=== PATIENT | male | born 1995 | race Caucasian/White ===

== ENCOUNTER 2022-08-10 14:24 | Emergency (ER) | payer BC, SELFPAY ==
[2022-08-10] VITALS (12 sets, daily range): BP systolic 114–161; BP diastolic 67–104; PULSE 84–98; RESP 16–18; TEMP 36.8; O2SAT 94–100
--- NOTE | ~2022-08-10 | US_ITS ---
EXAMINATION: US scrotum doppler DATE: 08/10/2022 15:45 INDICATION: testicular pain . TECHNIQUE: Grayscale and Doppler ultrasound images of the testes were obtained. COMPARISON: None. FINDINGS: The right testis measures 3.8 x 5.3 x 2.2 cm. The left testis measures 3.5 x 5.0 x 2.5 cm. No testicular mass. There is slightly increased generalized flow in the right testicle. The right epi didymis is normal with slightly increased vascular flow. The left epididymis is normal with normal va scular flow. Incidental note of a 5 mm left epididymal cyst. There is no varicocele or hydrocele. IMPRESSION: Slight right epididymal and testicular hyperemia, may reflect mild inflammation as can be seen with e pididymoorchitis the appropriate clinical context. Reviewed, dictated and finalized at location K. IMPRESSION: Slight right epididymal and testicular hyperemia, may reflect mild inflammation as can be seen with epididymoorchitis the appropriate clinical context.
--- NOTE | ~2022-08-10 | CT_ITS ---
EXAMINATION: CT abdomen pelvis w con DATE: 08/10/2022 16:33 INDICATION: Abdominal pain TECHNIQUE: Computed tomography (CT) of the abdomen and pelvis was performed with 100 mL Omnipaque-350 intravenous contrast. Automated exposure control and iterative reconstruction technique were employe d. The dose-length product was 477.91 mGy-cm. COMPARISON: None FINDINGS: Lung bases are clear. Heart size is normal. No pericardial or pleural effusion. Liver, gallbladder, s pleen, pancreas, bilateral adrenal glands and left kidney are normal. 2-3 mm obstructing stone at the right ureterovesicular junction with mild right hydroureteronephrosis and delayed right nephrogram. On the left, urinary excreted contrast opacifies entire left ureter without evident filling defects o r urothelial irregularities and with a left ureteral jet visualized in the bladder. Bowels including the appendix are normal. Tiny fat-containing umbilical hernia. No free intraperitoneal gas or fluid. No pathologically enlarged abdominal or pelvic lymphadenopathy. Mild lumbar levocurvature. IMPRESSION: 1. Obstructing 2-3 mm stone at the right ureterovesicular junction with mild right hydroureteronephro sis and delayed right nephrogram. Reviewed, dictated and finalized at location A. IMPRESSION: 1. Obstructing 2-3 mm stone at the right ureterovesicular junction with mild ri ght hydroureteronephrosis and delayed right nephrogram.
--- NOTE | 2022-08-10 14:55 | ED.ABDPAIN ---
HPI - Abdominal Pain General Chief Complaint: Abdominal Pain Stated Complaint: low abd pain Time Seen by Provider: 08/10/22 14:42 History of Present Illness HPI narrative: 27-year-old male reports for evaluation of sudden onset testicular pain, right lower abdominal pain and right flank pain for 1 hour. Patient reports associated nausea, vomiting and urinary urgency. States it feels like I have been kicked in the balls. He denies history of abdominal surgeries, dysuria, hematuria, fever, body aches or chills, penile discharge, hematemesis. Related Data Allergies Allergy/AdvReac Type Severity Reaction Status Date / Time No Known Allergies Allergy Unverified 03/06/12 18:22 Review of Systems Review of Systems: CONSTITUTIONAL: Denies fever, chills EYES: Denies visual changes, redness, or discharge. ENT: Denies rhinorrhea, congestion, sore throat, or otalgia. CARDIOVASCULAR: Denies chest pain, palpitations, or edema. RESPIRATORY: Denies cough or dyspnea. GASTROINTESTINAL: See HPI GENITOURINARY: See HPI SKIN: Denies rash or itching. MUSCULOSKELETAL: See HPI NEUROLOGIC: Denies headache, numbness, dizziness, or weakness. PSYCHIATRIC: Denies anxiety or depression. Exam Narrative: GENERAL: Patient appears uncomfortable. He is diaphoretic and wincing in pain. HEAD: Normocephalic EYES: PERRLA ENT: Nares clear. Mucous membranes moist. Oropharynx without tonsillar hypertrophy exudate or other lesions. NECK: Supple. CHEST: No respiratory distress. Clear to auscultation, no adventitious breath sounds. HEART: Regular rate and rhythm. No murmur heard. Normal peripheral pulses. ABDOMEN: Soft, nontender, normal active bowel sounds. No CVA tenderness. : No pain to palpation of testicles or epididymis. No edema. No scrotal or penile rashes or lesions. No hernia appreciated. EXTREMITIES: Normal range of motion. No edema. SKIN: Warm, dry, no rash. NEURO: No focal deficits. Alert and oriented x3. PSYCH: Normal mood and affect. Course Vital Signs Vital signs: Vital Signs Temperature 98.3 F 08/10/22 14:43 Pulse Rate 98 08/10/22 14:43 Respiratory Rate 18 08/10/22 14:43 Pulse Oximetry 100 08/10/22 14:43 Oxygen Delivery Room Air 08/10/22 14:43 Temperature 98.3 F 08/10/22 14:43 Pulse Rate 84 08/10/22 18:51 Respiratory Rate 16 08/10/22 18:51 Blood Pressure 114/67 08/10/22 18:51 Pulse Oximetry 98 08/10/22 18:51 Oxygen Delivery Room Air 08/10/22 14:43 MDM - Abdominal Pain MDM Narrative Medical decision making narrative: 27-year-old male reports for evaluation of sudden onset right flank pain, right lower abdominal pain and testicular pain. On exam, patient is diaphoretic and wincing in pain. Chemistries unremarkable. CBC significant for leukocytosis of 16.5. Lactic acid elevated at 4.2. Lipase not elevated. Ultrasound of the scrotum obtained without evidence of torsion. It does show slight right epididymal and testicular hyperemia which may reflect mild inflammation as can be seen with epididymo orchitis. CT abd pelvis shows a 2 to 3 mm stone at the right UVJ with mild right hydroureteronephrosis and delayed right nephrogram. Urinalysis with 1+ ketones. Labs and imaging discussed with the patient. The patient denies concern for STDs and penile discharge. He denies testicular pain prior to the sudden onset abdominal pain that developed today, therefore epididymoorchitis less likely. I believe the testicular pain is secondary to the kidney stone. Advised him to follow-up with his PCP if the testicular pain continues despite passing the stone. Patient's leukocytosis and increased lactate may be secondary to pain. He received 2 L of fluids and pain medications with a repeat lactic improving to 2.0. Upon reevaluation, the patient reports complete resolution of pain and states he feels much better. Plan to discharge patient home with Flomax, pain control, Zofran and urinary strainer w
[2022-08-10 15:33] LABS: Lactic Acid Reflex 4.2 mmol/L (0.7-2.0)
[2022-08-10 15:53] LABS: Basophils Absolute Auto 0.1 K/mm3 (0.0-0.1); Basophils Percent Auto 0.4 % (0.2-1.2); Eosinophils Percent Auto 0.2 % (0-4.4); Hematocrit 46.8 % (42.0-52.0); Hemoglobin 16.3 g/dL (14.0-18.0); Immature Granulocyte Percent A 0.6 % (0-0.5); Lymphocytes Absolute Auto 2.26 K/mm3 (0.9-3.2); Lymphocytes Percent Auto 13.7 % (18.3-44.2); Mean Corpuscular HGB Conc 34.8 g/dl (32-36); Mean Corpuscular Hemoglobin 29.4 pg (26-34); Mean Corpuscular Volume 84.3 fl (80-100); Mean Platelet Volume 9.4 fl (7.4-10.4); Monocytes Absolute Auto 0.8 K/mm3 (0.1-0.6); Monocytes Percent Auto 4.6 % (2.6-8.5); Neutrophils Absolute Auto 13.3 K/mm3 (1.3-6.7); Neutrophils Percent Auto 80.5 % (45.5-73.1); Platelet Count Result 384 k/mm3 (150-375); Red Blood Count 5.55 M/mm3 (4.6-6.20); Red Cell Distribution Width 12.7 % (11.5-14.5); White Blood Count 16.5 K/mm3 (4.5-10.0)
[2022-08-10] MEDS: ONDANSETRON INJ 4 MG/2 ML VIAL (15:56)
[2022-08-10] MEDS: HYDROmorphone HCL INJ (*CRX) 1 MG/ML SYR 0.5 MG IV PUSH (15:57)
[2022-08-10] MEDS: SODIUM CHLORIDE 0.9% IV 1,000 ML 999 ML IV CONT ×2 (15:59→18:29)
[2022-08-10 16:03] LABS: Alanine Aminotransferase 65 U/L (6-50); Albumin Level 4.9 g/dL (3.5-5.1); Alkaline Phosphatase 78 U/L (38-126); Anion Gap 15 mmol/L (8-16); Aspartate Amino Transferase 42 U/L (17-59); Bilirubin,Total 1.2 mg/dL (0.2-1.3); Blood Urea Nitrogen 10 mg/dL (9-20); Calcium 9.3 mg/dL (8.4-10.2); Carbon Dioxide 23 mmol/L (22-30); Chloride 103 mmol/L (98-107); Estimated Glomerular Filt Rate > 60; Glucose 127 mg/dL (65-110); Lipase 151 U/L (23-300); Potassium 3.6 mmol/L (3.4-5.0); Sodium 141 mmol/L (137-145)
[2022-08-10 16:13] LABS: Appearance Urine Clear (Clear); Bilirubin Urine Negative (Negative); Blood Urine Negative (Negative); Color Urine Yellow (Yellow); Glucose Urine UA Negative (Negative); Ketones Urine 1+ mg/dL (Negative); Leukocyte Esterase Ur Negative LEU/UL (Negative); Nitrate Urine Negative (Negative); Protein Urine Negative (Negative); Specific Grav Ur 1.017 (1.001-1.035); Urobilinogen Urine 0.2 mg/dL (<2.0); pH Urine 7.5 (5.0-9.0)
[2022-08-10 16:29] LABS: Add Urine Microscopic? NO
[2022-08-10 18:13] LABS: Reflex Lactic Acid Yes or No Add Lactic
== END 2022-08-10 20:27 | disposition home or self-care (01) ==
PROVIDERS: Emergency Provider Physician Assistant; PCP Emergency Medicine
DX: N13.2 Hydronephrosis with renal and ureteral calculous obstruction (principal)
CPT/HCPCS: 36415; 74177; 76870; 80053; 81003; 83605; 83690; 85025; 93976; 96374; 96375; 99284; J1170; J2405; J7030; Q9967

== ENCOUNTER 2023-07-20 08:47 | Emergency (ER) | payer BC, OTHER, SELFPAY ==
[2023-07-20 09:11] VITALS: BP 119/90; PULSE 83; RESP 16; TEMP 36.7; O2SAT 98
--- NOTE | 2023-07-20 09:12 | ED.URI ---
HPI - URI/Sore Throat General Chief Complaint: Upper Respiratory Infection Stated Complaint: Sore Throat Time Seen by Provider: 07/20/23 09:12 Source: patient Mode of arrival: ambulatory Limitations: no limitations History of Present Illness HPI Narrative: 28 yo M presents with c/o nasal congestion, sinus pressure, sore throat, headaches, fatigue for the past week. States sinuses acting up . intermittent dizziness. Recently got home from trip to [place]. All systems reviewed and negative except as noted above. Related Data Allergies Allergy/AdvReac Type Severity Reaction Status Date / Time No Known Allergies Allergy Verified 07/20/23 09:08 Review of Systems Review of Systems: CONSTITUTIONAL: Denies fever, chills, or sweats. reports fatigue. EYES: Denies visual changes, redness, or discharge. ENT: Reports rhinorrhea, congestion, sinus pressure, sore throat, otalgia. CARDIOVASCULAR: Denies chest pain, palpitations, or edema. RESPIRATORY: Denies cough or dyspnea. GASTROINTESTINAL: Denies abdominal pain, nausea, vomiting, or diarrhea. GENITOURINARY: Denies dysuria or hematuria. SKIN: Denies rash or itching. MUSCULOSKELETAL: Denies back pain, joint pain, or myalgia. NEUROLOGIC: Denies headache, numbness, or weakness. PSYCHIATRIC: Denies anxiety or depression. All other systems reviewed are negative, except as documented in HPI. PMFSH Comments At time of signature, agree with nursing past medical, surgical, social and family history. There is no relevant family history pertinent to the presenting complaint. Exam Narrative: GENERAL: This is a well-nourished, well-developed patient, in no apparent distress. HEAD: normocephalic, atraumatic. EYES: PERRL. Sclera clear/white. Vision is grossly intact. EARS: External ears normal, auditory canals clear and without drainage, Fluid and erythema to bilateral TMs , no perforation bilaterally. Hearing grossly intact. NOSE: External nose normal with purulent drainage drainage, mild congestion, erythema and swelling to bilateral nares. THROAT: Mucous membranes moist, Postnasal drainage, posterior erythema. No exudates. NECK: Neck supple, non-tender without lymphadenopathy, masses or thyromegaly. CARDIOVASCULAR: Regular rate and rhythm without murmurs, gallops, or rubs. RESPIRATORY: Clear to auscultation. Breath sounds equal bilaterally. No wheezes, rales, or rhonchi. SKIN: warm, Dry, intact with no suspicious lesions or rash, good texture and turgor. NEURO: awake, alert, and oriented to person, place and time. There were no obvious focal neurologic abnormalities. EXTREMITIES: No joint tenderness, effusion, or edema noted. Course Course Level of Care: Express Care Visit Vital Signs Vital signs: Vital Signs Temperature 36.7 C 07/20/23 09:11 Pulse Rate 83 07/20/23 09:11 Respiratory Rate 16 07/20/23 09:11 Blood Pressure 119/90 07/20/23 09:11 Pulse Oximetry 98 07/20/23 09:11 Oxygen Delivery Room Air 07/20/23 09:11 Temperature 36.7 C 07/20/23 09:11 Pulse Rate 83 07/20/23 09:11 Respiratory Rate 16 07/20/23 09:11 Blood Pressure 119/90 07/20/23 09:11 Pulse Oximetry 98 07/20/23 09:11 Oxygen Delivery Room Air 07/20/23 09:11 Reviewed MDM - URI/Sore Throat MDM Narrative Medical decision making narrative: will treat patient for bacterial sinusitis, serous otitis media due to duration of symptoms and exam findings. Patient agrees with plan of care. Patient is aware of diagnosis, understands and agrees to treatment plan. Anticipatory guidance given. Patient agrees to follow-up as directed and is aware of reasons to seek care at the emergency department. Portions of this record may have been created with voice recognition software Differential Diagnosis Differential diagnosis: Likely otitis media and sinusitis Lab Data Labs: Strep Screen Presumptive Negative *(Re
== END 2023-07-20 09:24 | disposition home or self-care (01) ==
PROVIDERS: Emergency Provider Nurse Practitioner Family; PCP Family Medicine
DX: J01.90 Acute sinusitis, unspecified (principal); H65.03 Acute serous otitis media, bilateral
CPT/HCPCS: 87081; 87880; 99213; G0463

== ENCOUNTER 2023-10-27 14:38 | Emergency (ER) | payer OTHER, SELFPAY ==
--- NOTE | 2023-10-27 14:43 | ED.GENADULT ---
HPI - General Adult General Chief complaint: Skin/Abscess/Foreign Body Stated complaint: infection Time Seen by Provider: 10/27/23 14:45 Source: patient, RN notes reviewed and old records reviewed Mode of arrival: ambulatory Limitations: no limitations History of Present Illness HPI narrative: 28-year-old male presents to the [facility] with concerns for an infection to the medial left inner arm. States he had a bug bite mode started 2 days ago, area is pain, not hot, not swollen No treatment prior to arrival Related Data Allergies Allergy/AdvReac Type Severity Reaction Status Date / Time No Known Allergies Allergy Verified 10/27/23 14:46 Review of Systems Review of Systems: All systems reviewed & are unremarkable except as noted in HPI and below Constitutional: Constitutional: Reports no additional constitutional complaints Eyes: Eyes: Reports no additional eye complaints ENT: Reports system reviewed and no additional complaints, except as documented Cardiovascular: Cardiovascular: Reports no additional cardiovascular complaints, Denies chest pain and Denies dyspnea Respiratory: Respiratory: Reports no additional respiratory complaints, Denies chest congestion, Denies cough and Denies dyspnea Gastrointestinal: Gastrointestinal: Reports no additional gastrointestinal complaints, Denies abdominal pain, Denies nausea and Denies vomiting Musculoskeletal: Musculoskeletal: Reports no additional musculoskeletal complaints Integumentary/Breasts: Skin/Breast: Reports as per HPI and Reports erythema Neurologic: Reports system reviewed and no additional complaints, except as documented Psychiatric: Psychiatric: Reports no additional psychiatric complaints Allergic/Immunologic: Allergic/Immunologic: Reports no additional allergic/immunologic complaints PMFSH Past Medical History Medical History (Updated 10/27/23 @ 19:12 by Annie Magana APRN) Patient denies medical problems Comments At the time of my signature, I reviewed and agree with the nursing past medical, surgical, social, and family history. There is no relevant family history pertinent to the patient complaint. Exam Const: General: cooperative, healthy appearing, comfortable, no acute distress, well developed, alert and well nourished Nutritional Appearance: well nourished Orientation/consciousness: patient oriented x3 Limitations: no limitations HENMT: Head: normal to inspection Ears: hearing grossly normal bilaterally and external ears normal Face/Nose/Sinus: Normal external nose present, Normal nares present, Normal nasal mucous membranes and turbinates present, normal facial exam and face symmetric Face and sinus: normal facial exam and face symmetric Eyes: General: appearance normal, both eyes and all related structures Alignment and Position: alignment normal Periorbital: periorbital findings normal Neck: Neck: normal visual inspection, full ROM, no lymphadenopathy and no meningeal signs Chest: Chest palpation & inspection: normal inspection of the chest Resp: Effort & Inspection: normal respiratory effort and able to speak in complete sentences Auscultation: clear to auscultation bilaterally, no crackles, no rales, no rhonchi and no wheezes Cardio: Rate: regular rate Rhythm: regular rhythm Skin: General skin exam: normal color and no rashes or lesions noted Rashes: no rashes Trauma: no lacerations or abrasions Wounds: no wounds Other: Left upper inner arm 8 x 6 pink area, not res, not hot, insect bite noted to center. No fluctuance noted. No induration noted Neuro: General: patient oriented x3, gait normal, tone normal, moves all extremities and no meningeal signs Cranial nerves: Yes Equal, round and reactive pupils present Cognition (Neuro): normal cognition Speech: normal speech Gait exam (Neuro): Normal gait present Extrem: General: normal to inspection, full ROM, capillary refill normal and normal gait Psych: Appearance:
[2023-10-27 14:46] VITALS: BP 136/81; PULSE 108; RESP 18; TEMP 36.1; O2SAT 97
== END 2023-10-27 15:00 | disposition home or self-care (01) ==
PROVIDERS: Emergency Provider Nurse Practitioner; PCP Family Medicine
DX: S40.862A Insect bite (nonvenomous) of left upper arm, initial encounter (principal); W57.XXXA Bitten or stung by nonvenomous insect and other nonvenomous arthropods, initial encounter
CPT/HCPCS: 99213; G0463